=== PATIENT | female | born 1930 | race Hispanic/Latino ===

== ENCOUNTER 2017-11-04 16:37 | Inpatient (IN) | payer MEDICARE ==
[~2017-11-04] VITALS: Ht 154.9 cm; Wt 87.1 kg
[2017-11-04] MEDS ORDERED: ALBUTEROL/IPRATROPIUM 3 ML NEB NEB ONE (17:15)
[2017-11-04 17:25] LABS: BASOPHILS # (AUTO) 0.1 (0.0-0.1); BASOPHILS % 0.3 % (0.0-1.0); EOSINOPHILS # (AUTO) 0.1 (0.0-0.4); EOSINOPHILS % 0.6 % (0.0-6.0); HEMOGLOBIN 13.1 g/dL (12.0-16.0); LYMPHOCYTES # (AUTO) 0.7 (1.0-3.2); LYMPHOCYTES % 4.3 % (18.0-39.1); MEAN CORPUSCULAR HEMOGLOBIN 29.8 pg (28-32); MEAN CORPUSCULAR HGB CONC 32.8 g/dL (31-35); MEAN CORPUSCULAR VOLUME 91.1 fL (81-99); MONOCYTES # (AUTO) 0.7 (0.2-0.8); MONOCYTES % 4.3 % (4.4-11.3); NEUTROPHILS % 89.9 % (38.7-80.0); PLATELET COUNT 224 x10e3/uL (140-360); RED BLOOD COUNT 4.39 x10e6/uL (3.6-5.1); RED CELL DISTRIBUTION WIDTH 13.2 % (11.7-14.4)
[2017-11-04 17:45] LABS: ALANINE AMINOTRANSFERASE 11 IU/L (0-55); ALBUMIN 3.6 g/dL (3.5-5.0); ALBUMIN/GLOBULIN RATIO 0.9 (0.8-2.0); ALKALINE PHOSPHATASE 126 IU/L (40-150); ANION GAP 14.8 mmol/L (8-16); BLOOD UREA NITROGEN 11 mg/dL (7-26); BUN/CREATININE RATIO 14 (6-25); CALCIUM 8.9 mg/dL (8.4-10.2); CARBON DIOXIDE 24 mmol/L (22-29); CHLORIDE 104 mmol/L (98-107); CREATINE KINASE 124 IU/L (29-168); CREATININE, SERUM 0.77 mg/dL (0.57-1.11); EST GLOMERULAR FILTRATION RATE > 60 ML/MIN (60-); GLUCOSE 169 mg/dL (74-118); POTASSIUM 3.8 mmol/L (3.5-5.1); SODIUM 139 mmol/L (136-145)
[2017-11-04 17:52] LABS: B-TYPE NATRIURETIC PEPTIDE2 121.4 pg/mL (0-100)
--- NOTE | 2017-11-04 18:03 | Diagnostic Imaging Report ---
PROCEDURE: A single AP view of the chest. COMPARISON: None. INDICATIONS: SOB, COUGH 2 DAYS FINDINGS: Lines/tubes: None. Lungs: The lungs are well-inflated. The mild prominence of the perihilar interstitial markings. No consolidation. Pleura: There is no pleural effusion or pneumothorax. Heart and mediastinum: Enlarged cardiac silhouette. Central pulmonary venous congestion. Bones: No acute bony abnormality. IMPRESSION: 1. enlarged cardiac silhouette with central pulmonary venous congestion and mild perihilar prominence, which may reflect mild interstitial edema. No consolidation or effusion. Gino Yan M.D. Dictated by: Gino Yan M.D. on 11/04/2017 at 18:04 Electronically approved by: Gino Yan M.D. on 11/04/2017 at 18:04
[2017-11-04] MEDS: ALBUTEROL SULF 0.083% NEB SOLN 3 ML NEB NEB SCH ×2 (18:30→22:30)
[2017-11-04] MEDS ORDERED: AZITHROMYCIN 500MG/SOD CHL 0.9% 250ML BAG IV SCH (18:30)
[2017-11-04] MEDS ORDERED: ASPIRIN 81 MG CHEW TAB PO ONE (18:30)
[2017-11-04] MEDS ORDERED: CEFTRIAXONE SOD 1 GM VIAL IV SCH (18:30)
[2017-11-04] MEDS ORDERED: FUROSEMIDE INJ 10 MG/ML 4 ML VIAL IV ONE (18:30)
--- OUTSIDE RECORDS SUMMARY | 2017-11-04 18:50 | XMS REPORT ---
Author Author [facility] Address Unknown Phone Unavailable Care Team Providers Care [employer] Supervisor Name Role Phone GÉNESIS HERNANDEZ Unavailable Unavailable Problems This patient has no known problems. Allergies, Adverse Reactions, Alerts This patient has no known allergies or adverse reactions. Medications This patient has no known medications. Results Test Description Test Time Test Comments Text Results Atomic Results Result Comments CHEST SINGLE (PORTABLE) [place] [id number] Patient Name: FABY MILLER MR #: [id number] : 1930 Age/Sex: 87/F Req #: [id number] Adm Physician: Ordered by: GÉNESIS HERNANDEZ MD Report #: [id number] Location: ER Room/Bed: Procedure: [id number] DX/CHEST SINGLE (PORTABLE) Exam Date: Exam Time: REPORT STATUS: Signed PROCEDURE: A single AP view of the chest. COMPARISON: None. INDICATIONS: SOB, COUGH 2 DAYS FINDINGS: Lines/tubes: None. Lungs: The lungs are well- inflated. The mild prominence of the perihilar interstitial markings. No consolidation. Pleura: There is no pleural effusion or pneumothorax. Heart and mediastinum: Enlarged cardiac silhouette. Central pulmonary venous congestion. Bones: No acute bony abnormality. IMPRESSION: 1. enlarged cardiac silhouette with central pulmonary venous congestion and mild perihilar prominence, which may reflect mild interstitial edema. No consolidation or effusion. Hailey Mckeon M.D. Dictated by : Hailey Mckeon M.D. on 11/04/2017 at 18:04 Electronically approved by: Hailey Mckeon M.D. on 11/04/2017 at 18:04 Dictated By : HAILEY MCKEON MD 180 Transcribed By: DELPHINE on 11/04/171803 COPY TO: GÉNESIS HERNANDEZ MD
[2017-11-04] MEDS ORDERED: LORAZEPAM INJ 2 MG/ML VIAL ONE (22:10)
[2017-11-04] MEDS: CEFTRIAXONE SOD 1 GM VIAL IV SCH (22:22)
[2017-11-04 22:57] LABS: CLARITY,URINE CLEAR (CLEAR); COLOR,URINE YELLOW (YELLOW); LEUKOCYTE ESTERASE ,URINE NEGATIVE (NEGATIVE); NITRITE,URINE NEGATIVE (NEGATIVE); PROTEIN,URINE DIPSTICK 1+ (NEGATIVE)
[2017-11-04 22:58] LABS: BILIRUBIN,URINE NEGATIVE (NEGATIVE); KETONES,URINE NEGATIVE (NEGATIVE); URINE UROBILINOGEN 0.2 mg/dL (0.2 - 1)
[2017-11-04 22:59] LABS: EPITHELIAL CELLS,URINE FEW /LPF; RBC,URINE 0-5 /HPF (0-5); WBC,URINE (MAN) 0-5 /HPF (0-5)
[2017-11-04] MEDS: AZITHROMYCIN 500MG/NS 250 ML 250 ML IV SCH (23:00)
[2017-11-04 23:39] VITALS: BP 135/68
[2017-11-04 23:45] VITALS: BP 124/55
[2017-11-05] VITALS (47 sets, daily range): BP systolic 99–152; BP diastolic 48–81
[2017-11-05] MEDS ORDERED: IPRATROPIUM BROMIDE 0.02% 2.5 ML NEB NEB SCH
[2017-11-05] MEDS ORDERED: IBUPROFEN400 MG PO (01:00)
[2017-11-05] MEDS: IPRATROPIUM BROMIDE 0.02% 2.5 ML NEB NEB SCH ×4 (03:32→19:00)
[2017-11-05] MEDS: ALBUTEROL SULF 0.083% NEB SOLN 3 ML NEB NEB SCH ×5 (03:33→19:00)
[2017-11-05 06:22] LABS: BASOPHILS % 0.3 % (0.0-1.0); EOSINOPHILS # (AUTO) 0.2 (0.0-0.4); EOSINOPHILS % 1.5 % (0.0-6.0); HEMATOCRIT 36.2 % (34.2-44.1); HEMOGLOBIN 11.9 g/dL (12.0-16.0); LYMPHOCYTES # (AUTO) 0.8 (1.0-3.2); LYMPHOCYTES % 7.2 % (18.0-39.1); MEAN CORPUSCULAR HEMOGLOBIN 30.4 pg (28-32); MEAN CORPUSCULAR HGB CONC 32.9 g/dL (31-35); MEAN CORPUSCULAR VOLUME 92.6 fL (81-99); MONOCYTES # (AUTO) 0.9 (0.2-0.8); MONOCYTES % 8.1 % (4.4-11.3); NEUTROPHILS # (AUTO) 9.5 (2.1-6.9); NEUTROPHILS % 82.6 % (38.7-80.0); PLATELET COUNT 217 x10e3/uL (140-360); RED BLOOD COUNT 3.91 x10e6/uL (3.6-5.1); RED CELL DISTRIBUTION WIDTH 13.5 % (11.7-14.4)
--- NOTE | 2017-11-05 06:23 | Diagnostic Imaging Report ---
CHEST SINGLE (PORTABLE), 11/05/2017 5:00 AM Technique: CHEST SINGLE (PORTABLE) Comparison: Previous day Clinical history: Pneumonia Findings: See Impression Impression: 1. Stable mildly enlarged cardiomediastinal silhouette. 2. Minimal bibasilar linear opacities, favor atelectasis/vascular crowding. 3. No pleural effusion or pneumothorax. Signed by: Dr Alicia Molina MD on 11/05/2017 6:20 AM
[2017-11-05 06:55] LABS: ANION GAP 14.6 mmol/L (8-16); BLOOD UREA NITROGEN 14 mg/dL (7-26); BUN/CREATININE RATIO 16 (6-25); CALCIUM 8.7 mg/dL (8.4-10.2); CARBON DIOXIDE 27 mmol/L (22-29); CHLORIDE 103 mmol/L (98-107); CREATININE, SERUM 0.87 mg/dL (0.57-1.11); EST GLOMERULAR FILTRATION RATE > 60 ML/MIN (60-); GLUCOSE 141 mg/dL (74-118); POTASSIUM 3.6 mmol/L (3.5-5.1); SODIUM 141 mmol/L (136-145)
[2017-11-05 07:18] LABS: CREATINE KINASE MB 4.2 ng/mL (0-5.0)
[2017-11-05] MEDS ORDERED: MICARDIS40 MG PO (07:20)
[2017-11-05] MEDS: CEFTRIAXONE SOD 1 GM VIAL IV SCH ×2 (08:58→19:55)
--- NOTE | 2017-11-05 09:12 | Cardiology Report ---
DATE OF STUDY: ATTENDING PHYSICIAN: Dr. Jeferson Avila ECHOCARDIOGRAM M-MODE: Normal chamber sizes. Borderline left ventricular hypertrophy. Normal contractility. Normal mitral and aortic valves. No pericardial effusion. SECTOR SCAN: Borderline left ventricular hypertrophy. Normal contractility. Ejection fraction 65%. Chamber size normal. Mitral, aortic and tricuspid valves are grossly normal. Minimal posterior pericardial effusion in the apex measuring approximately 0.4 cm with prominent epicardial fat pad. CARDIAC DOPPLER STUDY WITH COLOR: Trace tricuspid and mitral regurgitation. Pulmonary artery systolic pressure estimated at 23 mmHg. CONCLUSIONS 1. Minimal apical pericardial effusion measuring 0.4 cm with prominent epicardial fat pad. 2. Borderline left ventricular hypertrophy with ejection fraction of 65%. 3. Trace tricuspid regurgitation without significant pulmonary hypertension. 4. Trace mitral regurgitation. Job#: [id number] ROSI
[2017-11-05] MEDS ORDERED: BECLOMETHASONE DIP 80MCG 7.3 GM INH INH SCH (09:15)
[2017-11-05] MEDS ORDERED: HYDROCORTISONE SOD SUCCINATE 100 MG VIAL IV ONE (09:30)
--- NOTE | 2017-11-05 10:13 | Diagnostic Imaging Report ---
PROCEDURE: CT scan of the chest WITH intravenous contrast, using pulmonary embolus protocol. TECHNIQUE: The chest was scanned utilizing a multidetector helical scanner from the lung apex through the level of the adrenal glands after the IV administration of 100 cc of Isovue 370. Coronal and sagittal multiplanar reformations were obtained. COMPARISON: Chest radiograph 11/05/2017. INDICATIONS: PULMONARY EMBOLISM FINDINGS: Vasculature: The main pulmonary artery, right and left pulmonary arteries, and their visualized lobar and segmental branches are patent, without filling defect. The pulmonary outflow tract is of normal caliber. There is no ectasia or aneurysmal dilatation of the thoracic aorta. Incidental note of a common origin of the innominate artery and left common carotid artery from the aortic arch. Great vessel origins are otherwise normal in caliber and configuration. Atherosclerotic calcification of the aorta and left anterior descending coronary artery. Lungs and Airways: Minimal patchy groundglass and reticular opacities in the dependent portions of the lower lobes compatible with subsegmental atelectasis. Bandlike atelectasis or scar in the lingula. No airspace consolidation, bronchiectasis, or suspicious mass lesion. Pleura: No pleural effusion or pneumothorax. Heart and mediastinum: The visualized portions of the thyroid gland appear normal. No axillary, hilar, or mediastinal lymphadenopathy. Mild cardiomegaly without pericardial effusion. No septal bowing or right ventricular dilatation. Soft tissues: No focal soft tissue abnormalities. Abdomen: Visualized portions of the liver, spleen, pancreas, adrenals, and kidneys are unremarkable. Bones: No osseous destructive lesions. Multilevel degenerative disc changes. IMPRESSION: No pulmonary embolus to the level of the segmental branch pulmonary arteries. Cardiomegaly without overt pulmonary edema. Atherosclerotic vascular disease. Dictated by: Glenn Ren M.D. on 11/05/2017 at 10:13 Electronically approved by: Glenn Ren M.D. on 11/05/2017 at 10:13
[2017-11-05] MEDS: AMLODIPINE BESYLATE 5 MG TAB PO SCH (10:22)
[2017-11-05 14:55] LABS: CREATINE KINASE MB 3.5 ng/mL (0-5.0)
[2017-11-05] MEDS ORDERED: SODIUM CHLORIDE 0.9% 50ML 50 ML ONE (15:16)
[2017-11-05] MEDS ORDERED: IOPAMIDOL 370 MG/ML 200 ML INFUS..BTL INJ ONE (15:17)
--- NOTE | 2017-11-05 15:43 | Consultation ---
PULMONARY MEDICINE CONSULT DATE OF CONSULTATION: November 05, 2017 HISTORY OF PRESENT ILLNESS: Ms. Sexton is a pleasant 87-year-old female with hypoxemia. Patient was admitted under Dr. Plasencia and I am asked to evaluate. Patient was having shortness of breath, onset for three days. Patient has sick contacts times two at home including her son-in-law and a grandchild. Patient was not having any fevers. She was having mild secretions. This is the second event similar to this as she had an event similar about five months ago although was not as severe. Prior to this, there was no history of any asthma. No allergies. No significant GERD. She ambulates mostly without any assistive devices although she did get assistive devices in the past. She still will walk around in the grocery store and to go shopping. No history of home oxygen use. While in the hospital she was transferred to another bed. Her oxygen saturation went down to 75% on 5 liters per minute of oxygen. She was given rescue BiPAP and moved to the ICU. CT angiography at that time showed no PE with 28 mm pulmonary artery diameter with minimally elevated left hemidiaphragm and some scant basilar ground glass more suggestive of atelectasis pattern. PAST MEDICAL HISTORY: Hypertension. MEDICATIONS: Patient is on bisoprolol. ALLERGIES: NO KNOWN DRUG ALLERGIES. SOCIAL HISTORY: No smoking, no drinking, no drugs. [place] She was 9 years old when the family converted away from wood-burning stoves. She used to cook in her youth with that wood stove. She got at age 25 and moved to [facility] and then eventually to the [facility]. Currently she is living between two of her daughters as her in June 2017. FAMILY HISTORY: Noncontributory. REVIEW OF SYSTEMS GENERAL: No weight changes. OPHTHALMOLOGIC: No double vision. ENT: No bloody noses. ENDOCRINE: No thyroid disease. PULMONARY: No blood in the coughs. CARDIAC: No heart attacks. : No blood in the urine. GI: No diarrhea. MUSCULOSKELETAL: There is mild arthritis mainly in the knees but she never needs to take medicine for it. NEUROLOGIC: No seizures. PSYCHIATRIC: No depression. OBJECTIVE VITAL SIGNS: Afebrile, vital signs noted per electronic record. GENERAL: No acute distress, alert and calm. HEENT: Normocephalic, atraumatic. NECK: Supple. Throat midline. LUNGS: Bilateral air entry, rare rhonchi, mostly clear. CARDIOVASCULAR: S1, S2. No murmurs, rubs, or gallops. ABDOMEN: Soft, nontender. EXTREMITIES: No clubbing, no cyanosis, there is no edema. INTEGUMENT: No rash. No purpura. LABS: Labs reviewed per electronic record. Include 11 white count, 36 hematocrit, 217 platelets, 3.6 potassium, 14 BUN, 0.9 creatinine. BMP was 121. Globulin 4.0 and albumin 3.6. IMPRESSION AND PLAN 1. Abnormal chest radiography, scant ground glass. Treat for possible pneumonia. 2. Acute hypoxemic respiratory failure, status post transient BiPAP and now off BiPAP. 3. Obesity. 4. Treat for possible asthma. 5. 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 6. 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 Treat for possible asthma with steroids and bronchodilators. Check IgE level given the lifelong absent of asthma history. She will need outpatient PFTs. Follow up and wean down the oxygen as tolerated. If there is trouble getting her off the oxygen we should consider shunt study including echo with contrast if needed. Hopefully patient continues to improve. Lung expansion would be important given her obesity and the conformation of the elevated left hemidiaphragm which is very mild but may suggest some interaction from obesity. Will follow along closely. Give DVT prophylaxis in the meantime. Thank you very much Dr. Plasencia for allowing me a chance to participate in the care of Ms. Sexton. Do not hesitate to contact me if I can help in any way. Job#: [id number] FRANCHESCA
[2017-11-05] MEDS: ENOXAPARIN SOD INJ 40 MG/0.4 ML SYR SC SCH (16:58)
[2017-11-05] MEDS ORDERED: SODIUM CHLORIDE 0.9% 250ML 250 ML ONE (19:49)
[2017-11-05] MEDS: AZITHROMYCIN 500MG/NS 250 ML 250 ML IV SCH (19:55)
[2017-11-05] MEDS: METHYLPREDNISOLONE SOD SUCC 40 MG/ML VIAL IV SCH (20:14)
[2017-11-06] VITALS (34 sets, daily range): BP systolic 101–151; BP diastolic 37–71
[2017-11-06] MEDS: IPRATROPIUM BROMIDE 0.02% 2.5 ML NEB NEB SCH ×4 (02:25→19:10)
[2017-11-06] MEDS: ALBUTEROL SULF 0.083% NEB SOLN 3 ML NEB NEB SCH ×4 (02:25→19:10)
[2017-11-06] MEDS: CEFTRIAXONE SOD 1 GM VIAL IV SCH ×2 (08:36→20:47)
[2017-11-06] MEDS: METHYLPREDNISOLONE SOD SUCC 40 MG/ML VIAL IV SCH (08:36)
[2017-11-06] MEDS: AMLODIPINE BESYLATE 5 MG TAB PO SCH (08:36)
[2017-11-06] MEDS ORDERED: PREDNISONE10 M1 PO (13:43)
[2017-11-06] MEDS ORDERED: AZITHROMYCIN500 MG PO (13:43)
[2017-11-06] MEDS ORDERED: PROAIR HFA INH8.5 GM PO ×2 (13:43→16:37)
[2017-11-06] MEDS ORDERED: FLOVENT HFA12 G1 PO ×2 (13:43→16:37)
--- NOTE | 2017-11-06 14:27 | Progress Note ---
DATE: November 06, 2017 PULMONARY MEDICINE PROGRESS NOTE SUBJECTIVE: Ms. Sexton was seen and examined at bedside. She continues to have significant improvement in her breathing. White count is decreasing. Had 1.0 L in and 0.4 L out recorded. Two bowel movements. She is eating well. Has 96% oxygen saturation on 4 L per minute by nasal cannula oxygen. REVIEW OF SYSTEMS: No double vision. No rash. OBJECTIVE VITAL SIGNS: Afebrile, vital signs noted per electronic record. GENERAL: No acute distress, alert and calm. HEENT: Normocephalic, atraumatic. NECK: Supple. Throat midline. LUNGS: Bilateral air entry, rare rhonchi. CARDIOVASCULAR: S1, S2. No murmurs, rubs or gallops. ABDOMEN: Soft, nontender. EXTREMITIES: No clubbing. No cyanosis. There is no edema. INTEGUMENT: No rash. No purpura. LABS: White count 11, 36 hematocrit, 217 platelets, 3.6 potassium, 14 BUN, 0.9 creatinine. IMPRESSION AND PLAN 1. Acute respiratory failure, resolving, hypoxemic. 2. Asthma with exacerbation. 3. Atelectasis versus pneumonia, basilar lung opacities, mild. 4. Obesity. Continue IV antibiotics for now. Wean steroids. DVT prophylaxis. Follow up IgE, rheumatoid factor and ARMOND. Consider alpha-1 antitrypsin testing. Job#: [id number]
[2017-11-06] MEDS ORDERED: AZITHROMYCIN250 MG PO (16:37)
[2017-11-06] MEDS ORDERED: PREDNISONE5 MG PO (16:37)
[2017-11-06] MEDS: ENOXAPARIN SOD INJ 40 MG/0.4 ML SYR SC SCH (17:31)
[2017-11-06] MEDS ORDERED: SODIUM CHLORIDE 0.9% 250ML 250 ML ONE (20:35)
[2017-11-06] MEDS: AZITHROMYCIN 500MG/NS 250 ML 250 ML IV SCH (20:47)
[2017-11-07] VITALS (7 sets, daily range): BP systolic 117–161; BP diastolic 56–72
--- NOTE | 2017-11-07 02:03 | History and Physical ---
CLINICAL HISTORY: This is an 87-year-old woman admitted via the emergency room because of acute respiratory distress with desaturation. According to the patient, she has had a cough and severe shortness of breath for 3 days. She finally decided to go see her family doctor, and was referred to the emergency room for hospitalization. In the emergency room, she had an x-ray showing mild congestion. She was treated with bronchodilators, but was unable to tolerate CPAP machine. Became quickly desaturated to the 70s. Eventually, stabilized after multiple attempts at wearing the BiPAP machine and with diuresis. According to the patient, she has hypertension and is taking Micardis. She denies any allergic reaction to Micardis in the past. She does have a chronic cough. PAST MEDICAL HISTORY: She denies any diabetes or hyperlipidemia. PAST SURGERIES: Included cholecystectomy and hysterectomy. PERSONAL AND SOCIAL HISTORY: Denies smoking or drinking. She is a housewife. REVIEW OF SYSTEMS: Noncontributory. PHYSICAL EXAMINATION GENERAL: She is alert, coherent and appears to be short of breath even with talking. CARDIAC: Jugular veins were not distended. S1 and S2 were regular. There is no appreciable murmurs. LUNGS: Shows expiratory wheezes. ABDOMEN: Soft. Bowel sounds are present. EXTREMITIES: Show no cyanosis, clubbing or edema. LABORATORY STUDIES: The chest x-ray showed pulmonary congestion. Echocardiogram, however, showed normal ejection fraction of 65% with minimal pericardial effusion without pulmonary hypertension and without significant valvular abnormalities. IMPRESSION 1. Shortness of breath and cough of undetermined etiology with no family members being sick: Consider upper respiratory infection, but also consider allergic reaction to Micardis. 2. Severe hypoxemia with chest x-ray showing some congestion, but with normal left ventricular ejection fraction: Consider pulmonary embolism. 3. Hypertension. 4. Obesity, possibly confusing the x-ray interpretation. RECOMMENDATIONS: CT scan of the chest to rule out pulmonary embolism, as well as further delineate pulmonary anatomy. This patient has no previous history of smoking. Pulmonary consultation may be helpful. Continue bronchodilators and diuretics. Consider steroid inhalers. Consider IV steroids. Job#: [id number] RI cc:RICARDO GARZA MD
[2017-11-07] MEDS: IPRATROPIUM BROMIDE 0.02% 2.5 ML NEB NEB SCH ×4 (07:00→19:08)
[2017-11-07] MEDS: ALBUTEROL SULF 0.083% NEB SOLN 3 ML NEB NEB SCH ×4 (07:00→19:08)
[2017-11-07] MEDS: CEFTRIAXONE SOD 1 GM VIAL IV SCH ×2 (08:35→20:29)
[2017-11-07] MEDS: AMLODIPINE BESYLATE 5 MG TAB PO SCH (09:21)
[2017-11-07] MEDS: PREDNISONE 20 MG TAB PO SCH (09:22)
--- NOTE | 2017-11-07 14:34 | Progress Note ---
DATE: November 07, 2017 PULMONARY MEDICINE PROGRESS NOTE SUBJECTIVE: Ms. Sexton was seen and examined at bedside. She continues to have steady improvement. She was moved out of the ICU and today is on the medical floor. She is sitting up. Oxygen saturation 94% and only on 2 L per minute nasal cannula. We did wean off oxygen. The patient has not had subjective response to bronchodilators. REVIEW OF SYSTEMS: No headaches. No bleeding. OBJECTIVE VITALS: Afebrile. Vital signs noted per electronic record. GENERAL: In no acute distress. Alert and calm. HEENT: Normocephalic and atraumatic. NECK: Supple. Throat midline. LUNGS: Bilateral air entry. Few rare rhonchi. Mostly clear. CARDIOVASCULAR: S1 and S2. No murmurs, rubs or gallops. ABDOMEN: Soft and nontender. EXTREMITIES: No clubbing. No cyanosis. There is no edema. INTEGUMENT: No rash. No purpura. LABS: Reviewed per electronic record. IMPRESSION AND PLAN 1. Acute bronchitis. 2. Possible pneumonia with ground-glass per computerized tomography of chest. 3. Treat for possible asthma with exacerbation. 4. Hypoxemia, improving. 5. Possible gastroesophageal reflux disease although would be subclinical/silent as the patient is without symptoms. Continue current treatment at this time. The patient needs further followup to see if there are symptoms of GERD that come up. Otherwise, will just treat her blindly. Follow up IgE level. Follow up PFTs as an outpatient. Continue antibiotics and steroids for now. Job#: [id number] ROSI
[2017-11-07] MEDS: ENOXAPARIN SOD INJ 40 MG/0.4 ML SYR SC SCH (17:22)
[2017-11-07] MEDS: AZITHROMYCIN 500MG/NS 250 ML 250 ML IV SCH (20:29)
[2017-11-08] VITALS: BP 128/58
[2017-11-08] MEDS: ALBUTEROL SULF 0.083% NEB SOLN 3 ML NEB NEB SCH ×2 (00:28→07:00)
[2017-11-08] MEDS: IPRATROPIUM BROMIDE 0.02% 2.5 ML NEB NEB SCH ×2 (00:28→07:00)
[2017-11-08] MEDS ORDERED: SOTALOL HCL 80 MG TAB PO SCH ×2 (02:00→09:00)
[2017-11-08 07:59] VITALS: BP 152/67
[2017-11-08] MEDS: AMLODIPINE BESYLATE 5 MG TAB PO SCH (08:20)
[2017-11-08] MEDS: CEFTRIAXONE SOD 1 GM VIAL IV SCH (08:20)
[2017-11-08] MEDS: PREDNISONE 20 MG TAB PO SCH (08:20)
[2017-11-08 09:00] VITALS: BP 152/67
[2017-11-08 11:22] VITALS: BP 143/63
--- NOTE | 2017-11-08 13:32 | Progress Note ---
DATE: November 08, 2017 PULMONARY MEDICINE PROGRESS NOTE SUBJECTIVE: Mrs. Darshan Pool is making steady improvement. She is able to walk around today. She used a walker. She was able to go independently, she says. There is only small that she encountered. Patient continues at this time with less cough. REVIEW OF SYSTEMS: No bleeding, no rash. OBJECTIVE VITAL SIGNS: Afebrile. Vital signs noted per electronic record. GENERALLY: No acute distress, alert and calm. HEENT: Normocephalic, atraumatic. NECK: Supple. Throat midline. LUNGS: Bilateral air entry, a few rhonchi. CARDIOVASCULAR: S1 and S2. No murmurs, rubs or gallops. ABDOMINAL: Soft, nontender. EXTREMITIES: No clubbing, no cyanosis. There is no edema. INTEGUMENT: No rash. No purpura. IMPRESSION AND PLAN 1. Asthma with exacerbation, presumptive. 2. Acute bronchitis. 3. Hypoxemia and respiratory failure, resolved. 4. Weakness. Continue current treatment. Continue steroid taper. At this time will continue antibiotics and finish up as outpatient. Mobilize the patient. DVT prophylaxis will be continued. Job#: [id number] MAMIE
--- NOTE | 2017-11-09 01:21 | Discharge Summary ---
CLINICAL HISTORY: This is 87-year-old woman admitted via the emergency room because of severe wheezing and desaturation. Please refer to my previous dictation concerning details of current illness, past medical history, personal and social history, family history, review of systems, physical examination, initial laboratory studies. HOSPITAL COURSE: Initially, the patient was fighting the BiPAP machine and could not wear it, saturation dropped quickly to the 70s. Subsequently, she was able to to wear her BiPAP machine and gradually things stabilized. She was given bronchodilator treatment. Pulmonary consultation was obtained with Dr. Pedersen. Over the weekend, the patient was treated by Dr. Muñoz and Dr. Pedersen, gradually improved; however, she developed sudden onset of atrial fibrillation, was treated with sotalol 80 mg b.i.d., this caused significant bradycardia, but she did convert to a sinus rhythm. When examined later, she was still wheezing. We decided to change the sotalol to amiodarone because of the beta-blocking effect and wheezing, which may be exacerbated by sotalol. The patient, however, particularly at the urging of the daughter wanted to sign out against medical advice. They understand the danger of having such degree of bradycardia on sotalol and not able to switch over to amiodarone and not able to treat the patient with anticoagulants. There is significant risk of cardiac arrest as well as CVA. Nevertheless, fully understanding these risks, the family and patient signed out against medical advice. Apparently, they had wanted to be discharged throughout the weekend after I talked with Dr. Muñoz and obtained this additional information. The patient will presumably follow with primary care physician, will see me as needed. DISCHARGE DIAGNOSES: 1. Chronic obstructive pulmonary disease, possibly due to cooking exposure in the past, possible bronchitis, possible adverse reaction to Micardis. 2. Hypoxemia with chest x-ray showing some congestion, but with normal left ventricular function and without significant computerized tomography of the chest findings. 3. Possible underlying coronary artery disease by computerized tomography scan. 4. Possible gastroesophageal reflux. 5. Atrial fibrillation, possibly exacerbated by albuterol. 6. Severe sinus bradycardia, possibly due to sotalol, which may also exacerbate wheezing. 7. The patient was switched to amiodarone, but signed out against medical advice. 8. Consider anticoagulation for atrial fibrillation. 9. Hypertension. 10. Obesity. ED WALTERS MD Job#: [id number] cc:RICARDO GARZA MD
[2017-11-09] MEDS ORDERED: BECLOMETHASONE DIP 80MCG 7.3 GM INH INH SCH (06:00)
[2017-11-09] MEDS ORDERED: AMIODARONE HCL 200 MG TAB PO SCH (09:00)
== END 2017-11-08 12:55 | disposition left against medical advice (07) | DRG 189 ==
LOC: ER 16:37 → ERHOLD 18:47 → ICU 23:10 → MED/SURG3 11-06 19:05
PROVIDERS: ADMIT Internal Medicine Cardiovascular Disease; ATTEND Internal Medicine Cardiovascular Disease
PROC: 5A09357 Assistance with Respiratory Ventilation, Less than 24 Consecutive Hours, Continuous Positive Airway Pressure (ICD-10-PCS; principal; 2017-11-04)
DX: J96.01 Acute respiratory failure with hypoxia (principal); J18.9 Pneumonia, unspecified organism; J45.901 Unspecified asthma with (acute) exacerbation; J44.0 Chronic obstructive pulmonary disease with (acute) lower respiratory infection; J20.9 Acute bronchitis, unspecified; I50.9 Heart failure, unspecified; E66.9 Obesity, unspecified; I11.0 Hypertensive heart disease with heart failure; D89.2 Hypergammaglobulinemia, unspecified; K21.9 Gastro-esophageal reflux disease without esophagitis; R53.1 Weakness; I48.91 Unspecified atrial fibrillation; T50.2X5A Adverse effect of carbonic-anhydrase inhibitors, benzothiadiazides and other diuretics, initial encounter; I25.10 Atherosclerotic heart disease of native coronary artery without angina pectoris; T48.6X5A Adverse effect of antiasthmatics, initial encounter; Y92.230 Patient room in hospital as the place of occurrence of the external cause; R00.1 Bradycardia, unspecified
CPT/HCPCS: 36415; 71045; 71260; 80048; 80053; 81001; 82550; 82553; 82785; 83605; 83615; 83880; 84484; 85025; 86039; 86431; 93005; 93306; 94640; 94660; 96367; 99284; J0456; J0696; J1650; J1720; J1940; J2060; J2920; J7050; Q9967